=== PATIENT | male | born 1970 | race Caucasian/White ===

== ENCOUNTER 2024-03-18 10:06 | Emergency (ER) | payer MEDICAID | END 2024-03-18 11:49 | disposition home or self-care (01) | LOC: JD.ED 10:06 | DX: F10.10 Alcohol abuse, uncomplicated (principal); F17.210 Nicotine dependence, cigarettes, uncomplicated; Z79.899 Other long term (current) drug therapy | CPT/HCPCS: 99284 ==

== ENCOUNTER 2024-03-18 21:12 | Emergency (ER) | payer SELFPAY ==
[2024-03-18] MEDS: Lidocaine 1% 10 ML MDV INJECT ONE (22:17)
[2024-03-18 22:24] LABS: BASOPHILS PERCENT AUTO 0.4 % (0.0-1.0); EOSINOPHILS ABSOLUTE AUTO 0.3 K/mm3 (0.0-0.4); EOSINOPHILS PERCENT AUTO 3.8 % (0.0-6.0); HEMATOCRIT 40.1 % (42.0-52.0); HEMOGLOBIN 14.1 gm/dl (14.0-18.0); IMMATURE GRAN ABSOLUTE AUTO 0.02 K/mm3 (0.00-0.05); IMMATURE GRAN PERCENT AUTO 0.3 % (0.0-0.4); LYMPHOCYTES ABSOLUTE AUTO 2.6 K/mm3 (1.0-4.8); LYMPHOCYTES PERCENT AUTO 32.7 % (24.0-44.0); MEAN CORPUSCULAR HEMOGLOBIN 33.1 pg (28.0-32.0); MEAN CORPUSCULAR HGB CONC 35.2 g/dl (32.0-36.0); MEAN CORPUSCULAR VOLUME 94.1 fl (83.0-99.0); MEAN PLATELET VOLUME 8.9 fl (9.4-12.4); MONOCYTES ABSOLUTE AUTO 0.6 K/mm3 (0.0-0.8); MONOCYTES PERCENT AUTO 7.9 % (0.0-8.0); NEUTROPHILS ABSOLUTE AUTO 4.3 K/mm3 (1.8-7.7); NEUTROPHILS PERCENT AUTO 54.9 % (41.0-71.0); PLATELET COUNT,PLT 196 K/mm3 (150-400); RED BLOOD CELL COUNT 4.26 M/mm3 (4.52-5.90)
[2024-03-18 22:56] LABS: A/G RATIO 1.1 (1-2); ALBUMIN 3.8 g/dl (3.4-5.0); ANION GAP 17.9 (5-15); BILIRUBIN TOTAL 0.2 mg/dL (0.2-1.0); BUN/CREATININE RATIO 14.3 (14-18); CALCIUM 8.6 mg/dL (8.5-10.1); CREATININE 0.7 mg/dL (0.7-1.3); EST CRCL DRUG DOSING (CG) 123.35 mL/min; ETHANOL BLOOD MEDICAL 0.33 gm% (0.00); MAGNESIUM 1.8 mg/dL (1.8-2.4); POTASSIUM,K 3.9 mEq/L (3.5-5.1); PROTEIN TOTAL,TP 7.3 g/dl (6.4-8.2)
[2024-03-18] MEDS: Pantoprazole 40 MG Tab.CR PO ONE (22:57)
[2024-03-19] MEDS: Lidocaine 4% 1 each Patch TOP PRN (02:58)
== END 2024-03-19 08:10 | disposition home or self-care (01) ==
LOC: JD.ED 21:12
DX: F10.120 Alcohol abuse with intoxication, uncomplicated (principal); F17.210 Nicotine dependence, cigarettes, uncomplicated; Z79.899 Other long term (current) drug therapy
CPT/HCPCS: 36415; 80053; 80307; 83735; 85025; 99284; A9270; 99283